=== PATIENT | male | born 1980 | race Caucasian/White ===

== ENCOUNTER 2021-08-10 00:46 | Emergency (ER) | payer OTHER ==
[~2021-08-10] VITALS: Ht 182.9 cm; Wt 114.0 kg
[2021-08-10] MEDS ORDERED: ULTRAM50 MG PO (01:02)
[2021-08-10] MEDS ORDERED: NEURONTIN300 MG PO (01:03)
[2021-08-10] MEDS ORDERED: VISTARIL50 MG PO (01:03)
[2021-08-10] MEDS ORDERED: PENICILLIN V P500 MG PO (01:59)
== END 2021-08-10 02:09 | disposition home or self-care (01) ==
LOC: ED 00:46
DX: K02.9 Dental caries, unspecified (principal); G43.909 Migraine, unspecified, not intractable, without status migrainosus; F43.10 Post-traumatic stress disorder, unspecified; Z79.899 Other long term (current) drug therapy; Z79.891 Long term (current) use of opiate analgesic
CPT/HCPCS: 70450; 99283-25

== ENCOUNTER 2021-11-10 17:17 | Emergency (ER) | payer OTHER ==
[~2021-11-10] VITALS: Ht 182.9 cm; Wt 113.8 kg
[~2021-11-10 17:17] MED LIST: NEURONTIN300 MG PO; PENICILLIN V P500 MG PO; ULTRAM50 MG PO; VISTARIL50 MG PO
[2021-11-10] MEDS ORDERED: TRAZODONE HCL50 MG NG (17:42)
[2021-11-10] MEDS ORDERED: PRAZOSIN HCL1 GM MC (17:42)
[2021-11-10] MEDS ORDERED: PROTONIX40 MG PO (20:33)
[2021-11-10] MEDS ORDERED: ONDANSETRON ODT8 MG PO (20:33)
[2021-11-10] MEDS ORDERED: HYDROCODON-ACE1 EA10 PO (20:33)
== END 2021-11-10 21:15 | disposition home or self-care (01) ==
LOC: ED 17:17
DX: K80.20 Calculus of gallbladder without cholecystitis without obstruction (principal); G43.909 Migraine, unspecified, not intractable, without status migrainosus; Z79.899 Other long term (current) drug therapy; Z20.822 Contact with and (suspected) exposure to COVID-19
CPT/HCPCS: 36415; 74177; 76705; 80053; 83690; 85025; 96375; 96376; 99284-25; A9270; C9803; J1170; J2405; Q9967; U0003

== ENCOUNTER 2022-01-26 10:27 | Inpatient (IN) | payer OTHER ==
[~2022-01-26] VITALS: Ht 182.9 cm; Wt 113.0 kg
[~2022-01-26 10:27] MED LIST changes: +HYDROCODON-ACE1 EA10 PO; +MINIPRESS1 MG PO; +ONDANSETRON ODT8 MG PO; +PROTONIX40 MG PO; +TRAZODONE HCL50 MG PO
--- NOTE | 2022-01-26 15:25 | NUR ---
Patient admitted from the ED, here with a SBO/ileus/cholelithasis. Reports pain of a 4, which he says is getting there. Updated him and his on plan of care. Advised patient that he is NPO, will have fluids and need and NGT, he says he will try but doubts he will be able to do the NGT. Orders to be reviewed, then will attempt NGT.
--- NOTE | 2022-01-26 17:00 | NUR ---
NGT attempted by Jesus ROLON, and the assist of myself Tabatha ROLON. NGT was almost down, when the patient was adament to get it out and he was vomiting during this time. Emesis of approximately 475-500 ml of clear to light yellow liquid.
--- NOTE | 2022-01-26 17:26 | NUR ---
MD CALLED AND NOTIFIED PT. UNABLE TO TOLERATE NG TUBE AND REFUSES.
--- NOTE | 2022-01-26 18:42 | NUR ---
patient snoring laying flat in bed at this time, after 1 mg of IV Diluadid was given. He continues to ask for ice when he wakes, he continues to be updated on his NPO status d/t his ileus/SBO. He has voided 375 in the urinal, urine is yashira in color.
--- NOTE | 2022-01-26 20:21 | NUR ---
pt sleeping soundly. has left.
--- NOTE | 2022-01-26 22:20 | NUR ---
IN TO GET VITALS, PT IS DUE TO VOID, RN AWARE, NO FURTHER NEEDS AT THIS TIME, PT REMAINS NPO STATUS
--- NOTE | 2022-01-27 00:02 | NUR ---
PT HAS BEEN MOSTLY SLEEPING SINCE START OF SHIFT. STATES HE DOES KNOW HOW TO USE CALL LIGHT. HAS C/O DRY MOUTH. MOISTENED SWAB GIVEN. AWARE OF NPO STATUS. STATES PAIN IS "CREEPING UP" BUT IS TOLERABLE AND HE DOES NOT NEED ANY MEDS OR INTERVENTIONS.
--- NOTE | 2022-01-27 00:35 | NUR ---
NEW BAG OF IVF MILY. PT STATES HE WOULD LIKE SOME PAIN MED AT THIS TIME. DILAUDID GIVEN. DENIES ANY OTHER NEEDS.
--- NOTE | 2022-01-27 03:10 | NUR ---
MEDICATED FOR NAUSEA. DENIES ANY OTHER NEEDS. IV SITE RETAPED.
--- NOTE | 2022-01-27 07:20 | NUR ---
Report received from night RN - Velia. Pt asleep in bed, RR even and unlabored. Call light in reach.
--- NOTE | 2022-01-27 08:05 | CONS ---
[facility] [address], [place] [address] Signed DATE OF CONSULTATION: 01/26/2022 CHIEF COMPLAINT: Generalized abdominal pain with nausea and vomiting. 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 He had a similar episode of this several months ago apparently, that generated an ultrasound and he knows he has gallstones. He has now had a 1-day history of generalized abdominal pain and nausea and vomiting. He was getting dehydrated, so his brought him to the emergency room. His white count is elevated but so is his hemoglobin, and his BUN and creatinine are up as well. Liver function tests are particularly concerning, although the alkaline phosphatase is up a little bit at 138 and lipase is normal. Repeat ultrasound confirmed the common bile duct was not dilated at 4 mm, there were stones, and there are loops of dilated small bowel in the right upper quadrant, but the gallbladder wall is not thickened. This generated a CT scan of abdomen and pelvis and he has multiple fluid-filled slightly dilated small bowel loops. He also has fluid in the stomach. We are waiting for final read from our radiologist. In the meantime, I have come down to the ER to visit with Joselo and his . PAST MEDICAL HISTORY: -related traumatic brain injury, posttraumatic stress disorder, migraines. PAST SURGICAL HISTORY: Right shoulder, right hip, and L1 through L4 without any metal remaining. SOCIAL HISTORY: He is down to a few cigarettes every few days. He does not drink. He is to Em, at , they have three children. 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 They live in [place], [place]. Dr. Ed Stern is a primary care provider. FAMILY HISTORY: No major medical issues. REVIEW OF SYSTEMS: He said there is no metal remaining in his body. ALLERGIES: None. MEDICATIONS: Gabapentin, prazosin, and trazodone. Electronically Signed By: CHRISTEL QUINTANA MD 01/27/22 0805 PATIENT NAME: JOSELO FISCHER CONSULTATION DATE OF : 84 REPORT #: [id number] PHYSICIAN: CHRISTEL QUINTANA MD PCP: ED STERN MD REPORT IS CONFIDENTIAL AND NOT TO BE RELEASED WITHOUT AUTHORIZATION [facility] [address], [place] [address] Signed PHYSICAL EXAMINATION: VITAL SIGNS: Blood pressure is 147/101, his heart rate is 96, respiratory rate 14, his temperature is 97.7, and he is saturating 99%. He is 5 feet 6 inches, at 250 pounds. GENERAL: Joselo is a 42-year-old gentleman, lying supine in his ER bed with his in the room. He is alert, awake, and interactive. He can tell he is a little uncomfortable overall. LUNGS: Clear to auscultation bilaterally. HEART: Appeared to be slightly increased, but without murmur. ABDOMEN: Moderately protuberant and diffusely tender with dullness to percussion. LABORATORY DATA: White blood count is 21,000, hemoglobin 17, platelets are 740. His BUN is 31, his creatinine is 1.8, glucose 150. Total bilirubin 0.3, AST 25, ALT 56, alkaline phosphatase 138, albumin is 4.5, his lipase 106. RADIOGRAPHIC STUDIES: The ultrasound of the right upper quadrant shows the common bile duct to be about 4 mm, which is unremarkable. He does have some stones. The gallbladder wall is not particularly thickened, but there are some dilated fluid-filled loops of small bowel. CT scan of the abdomen and pelvis also shows multiple fluid-filled slightly dilated small bowel loops and fluid in the stomach. We are still awaiting the final report. ASSESSMENT/PLAN: Joselo is a 42-year-old gentleman, who presents with what more than likely is a viral gastroenteritis. He is certainly dehydrated. I talked about an NG tube, maybe even just for one day to see if that might help. He thought that might be a good addition from all the vomiting. He is going to be admitted and we will give him IV fluids and repeat his labs in the morning, hopefully this will subside. He understands at 20% of people have gallstones and that does not seem to be as issue on this occasion. He and his have expressed understanding and agreed with the above plan. Christel Quintana MD ALB/MODL /[id number] cc: Ed Stern MD Electronically Signed By: CHRISTEL QUINTANA MD 01/27/22 0805 PATIENT NAME: JOSELO FISCHER CONSULTATION DATE OF : 84 REPORT #: [id number] PHYSICIAN: CHRISTEL QUINTANA MD PCP: ED STERN MD REPORT IS CONFIDENTIAL AND NOT TO BE RELEASED WITHOUT AUTHORIZATION [facility] [address] [place], [place] [address] Signed Christel Quintana MD Patient Chart Copies: ED STERN MD, ANDREW L MD ~ Electronically Signed By: CHRISTEL QUINTANA MD 01/27/22 0805 PATIENT NAME: JOSELO FISCHER CONSULTATION DATE OF : 84 REPORT #: [id number] PHYSICIAN: CHRISTEL QUINTANA MD PCP: ED STERN MD REPORT IS CONFIDENTIAL AND NOT TO BE RELEASED WITHOUT AUTHORIZATION
--- NOTE | 2022-01-27 08:11 | NUR ---
RN IN ROOM TO ADMINISTER SCHEDULED MEDICATIONS. ABX INFUSING AT IV SITE WITHOUT DIFFICULTY. PRN PAIN MEDICATION REQUESTED FOR 7/10 ABD PAIN - ADMINISTERED. PT RESITNG AFTER ADMINISTRATION WITH EYES CLOSED, RR EVEN AND UNLABORED. AT BEDSIDE, CALL LIGHT IN REACH.
--- NOTE | 2022-01-27 10:05 | NUR ---
RN IN ROOM TO ADMINISTER ABX AND ASSESS PT. PT ASLEEP UPON ENTERING THE ROOM, WAKES EASILY WITH VOICE. AT BEDSIDE. MD ROUNDING IN ROOM. STATES PT CAN HAVE ICE CHIPS. PROVIDED. PT THEN REPORTS NAUSEA QUICKLY AFTER FIRST SPOONFULS. PRN NAUSEA MEDICAITON ADMINISTERED, ENCOURAGED PT TO TAKE ACTIVITY AND FLUIDS SLOW. ABD DISTENDED MORE THAN BASELINE PER PT BUT SOFT. HYPERACTIVE BOWEL SOUNDS. PT STATES HE IS PASSING GAS, REPORTS BM LAST NIGHT. PT DENIES FURTHER NEEDS, CALL LIGHT IN REACH.
--- NOTE | 2022-01-27 10:15 | NUR ---
IV pump alarming, resolved. Pt resting in bed with eyes closed, breathing even and unlabored. Visitor at bedside. No needs at this time.
--- NOTE | 2022-01-27 12:24 | NUR ---
RN IN ROOM TO PREP PT FOR SHOWER. INDEPENDENT IN ROOM, IN ROOM TO HELP. PT STATES NAUSEA IMPROVED.
--- NOTE | 2022-01-27 13:16 | NUR ---
PT USES CALL LIGHT TO REQUEST PAIN MEDICATION. RATES PAIN 4/10. IV SITE TOLERATING FLUID INFUSIONS WITHOUT DIFFICULTY. PT STATES NAUSEA IS NOT WORSE AFTER CLEAR LIQUID LUNCH TRAY. CALL LIGHT IN REACH.
--- NOTE | 2022-01-27 16:21 | NUR ---
RN ROUNDING ON PT - RESTING IN BED WITH EYES CLOSED, RR EVEN AND UNLABORED. AT BEDSIDE.
--- NOTE | 2022-01-27 16:52 | NUR ---
PT USES CALL LIGHT TO REQUEST PAIN MEDICATION. PT REPORTS PAIN 6/10 IN ABDOMEN. STATES HE IS ALSO NAUSEA - PRN PROVIDED FOR BOTH. DINNER TRAY DELIVERED - ENCOURAGED TO TAKE IT SLOW. AT BEDSIDE, CALL LIGHT IN REACH.
--- NOTE | 2022-01-27 18:43 | NUR ---
PT RESTING IN BED - STATES PAIN AND NAUSEA ARE IMPROVED. CALL LIGHT IN REACH. AT BEDSIDE.
--- NOTE | 2022-01-27 19:18 | NUR ---
REPORT FROM ОЛЬГА GUERRERO. PATIENT LYING IN BED. STATING HE IS IN PAIN, REQUESTING PAIN MEDICATION. DENIES OTHER NEEDS AT THIS TIME.
--- NOTE | 2022-01-27 19:48 | NUR ---
LYING IN BED, RATING PAIN 6/0 AT THIS TIME. PRN ANALGESIC ADMINISTERED. PATIENT DENIES OTHER NEEDS AT THIS TIME. ASSESSMENT COMPLETED. CALL LIGHT IN REACH, BED RAILS UP X2.
--- NOTE | 2022-01-28 02:16 | NUR ---
CALL LIGHT ANSWERED, IV PUMP ALARMING. ISSUE RESOLVED, FLUIDS CONT TO INFUSE DIRECTED. IV SITE WNL. NO FURTHER NEEDS OR CONCERNS. CALL LIGHT IN REACH.
--- NOTE | 2022-01-28 05:25 | NUR ---
SLept most of the night. IV fluids continue infusing. Continues to have periods of nausea and pain. Pain controlled with PRN Dilaudid X3. Zofran given X1.
--- NOTE | 2022-01-28 07:10 | NUR ---
PATIENT SLEEPING AT THIS TIME. RESPIRATION 16.
--- NOTE | 2022-01-28 08:10 | NUR ---
ASSESSMENT COMPLETED. PAIN 4/10 ACCEPTABLE FOR THE PATIENT.
--- NOTE | 2022-01-28 09:53 | NUR ---
MD AT BEDSIDE, PLAN TO DISCHARGE HOME.
--- NOTE | 2022-01-28 11:25 | NUR ---
discharge instruction discussed, packet given to the patient. Discharge VSS, didnt want to eat lunch here.
--- NOTE | 2022-01-28 12:12 | DS ---
[facility] [address] [place], [place] [address] Signed ADMISSION DATE: 01/26/2022 DISCHARGE DATE: 01/28/2022 FINAL DIAGNOSES: 1. Viral gastroenteritis. 2. Nausea and vomiting with dehydration. 3. Acute kidney injury. 4. Incidental cholelithiasis. PROCEDURES: 1. Ultrasound right upper quadrant. 2. CT scan of abdomen and pelvis. HISTORY OF PRESENT ILLNESS: Joselo is a 42-year-old gentleman, who is now remarried but has 3 living children. His middle son is a teenager and has autism and Down syndrome. He goes to school with other mentally disabled children. He is frequently sick throughout the entire year. Joselo said he came earlier this year with similar symptoms that resolved quickly and he was discharged home. On this occasion, he developed upper abdominal pain, distention with nausea, vomiting, and dehydration. He came to emergency room for evaluation. His white count was elevated, but the other laboratory work was not overly concerning. Of course, the ultrasound confirmed his history of cholelithiasis. Otherwise, no real concerns with his gallbladder or liver. He did have some dilated loops of small bowel. Therefore, a CT scan was ordered and he had a fluid-filled stomach and proximal small bowel more concerning for a viral gastroenteritis. I had been asked to admit him as a general surgeon on-call. HOSPITAL COURSE: I met with Joselo and his in the ER. We tried to place an NG to decompress the stomach, but he did not tolerate that. We admitted him and hydrated him and by the next morning, he looked and felt much better. His white count had already dropped from 21 down to 15. We let him have some clear liquid diet and by the next day his white count is down to normal. His abdomen is completely soft, flat, benign and nontender. He has had a good bowel movement and flatus. He is hungry and would like to eat more. He is hoping to go home. We reviewed the incidental findings of cholelithiasis. He is well aware that 20% of people here in [place] have gallstones. Only 20% of that group will develop symptoms and need their gallbladder out. No reason to pursue that currently from what I can tell. His liver function tests today were normal. DISCHARGE PLANS AND MEDICATIONS: Joselo will be discharged to home without any new prescriptions. He is set to establish Electronically Signed By: CHRISTEL QUINTANA MD 01/28/22 1212 PATIENT NAME: JOSELO FISCHER DISCHARGE SUMMARY DATE OF : 84 REPORT #: [id number] PHYSICIAN: CHRISTEL QUINTANA MD PCP: ED GENTILE MD REPORT IS CONFIDENTIAL AND NOT TO BE RELEASED WITHOUT AUTHORIZATION [facility] [address] [place], [place] [address] Signed with his primary care provider here in the weeks ahead. He can shower and bathe as usual. He will advance his diet as tolerated. He can return to work in a day or two when he is feeling better. There are no restrictions on his physical activities. 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 He is welcome to follow up in my office as needed. I have reviewed this with Joselo and his . They have expressed understanding and agreed with the above plan. Christel Quintana MD ALB/MODL /[id number] cc: MD Ed Tellez MD Copies: CHRISTEL QUINTANA MD, RUSSELL BARR MD ~ Electronically Signed By: CHRISTEL QUINTANA MD 01/28/22 1212 PATIENT NAME: JOSELO FISCHER DISCHARGE SUMMARY DATE OF : 84 REPORT #: [id number] PHYSICIAN: CHRISTEL QUINTANA MD PCP: ED GENTILE MD REPORT IS CONFIDENTIAL AND NOT TO BE RELEASED WITHOUT AUTHORIZATION
== END 2022-01-28 11:14 | disposition home or self-care (01) | DRG 392 ==
LOC: ED 10:27 → MS 14:17
PROVIDERS: ADMIT Colon & Rectal Surgery; ATTEND Colon & Rectal Surgery
DX: A08.4 Viral intestinal infection, unspecified (principal); N17.9 Acute kidney failure, unspecified; Z20.822 Contact with and (suspected) exposure to COVID-19; E86.0 Dehydration; K80.20 Calculus of gallbladder without cholecystitis without obstruction; D72.829 Elevated white blood cell count, unspecified; F43.10 Post-traumatic stress disorder, unspecified; G43.909 Migraine, unspecified, not intractable, without status migrainosus; Z87.820 Personal history of traumatic brain injury; Z98.890 Other specified postprocedural states; Z79.899 Other long term (current) drug therapy
CPT/HCPCS: 36415; 74177; 76705; 80048; 80053; 83690; 83735; 84100; 85025; 87502; 99285-25; C9113; C9803; J0696; J1170; J1650; J1790; J2405; J7030; J7121; Q9967; U0003

== ENCOUNTER 2024-11-30 07:22 | Inpatient (IN) | payer OTHER ==
[~2024-11-30] VITALS: Ht 182.9 cm; Wt 120.0 kg
[2024-11-30] VITALS (8 sets, daily range): BP systolic 128–151; BP diastolic 68–92
[~2024-11-30 07:22] MED LIST changes: +AZITHROMYCIN250 MG PO; +OXYCODONE HCL10 MG PO
--- OUTSIDE RECORDS SUMMARY | 2024-11-30 07:25 | XMS ---
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 09/16/2023 15:12 - Patient eloped with IV in place. - Patient eloped before treatment completed. - Patient with suicidal and/or homicidal ideations eloped. Details: Patient LWBS. CRITERIA MET - Group Notification CARE PROVIDERS There are no care providers on record at this time. Emile has no Care Guidelines for this patient. E.D. VISIT COUNT (12 MO.) [address] TOTAL 3 NOTE: Visits indicate total known visits. ED/UCC VISIT TRACKING (12 MO.) 11/30/2024 07:23 [facility] TYPE: Emergency COMPLAINT: - ABDOMINAL PAIN 07/06/2024 09:46 [facility] TYPE: Emergency COMPLAINT: - SOA,ABD PX 07/03/2024 08:36 [facility] TYPE: Emergency COMPLAINT: - ABD PX INPATIENT VISIT TRACKING (12 MO.) 07/06/2024 15:51 [facility] TYPE: Inpatient COMPLAINT: - PARTIAL SBO, ABDOMINAL PAIN DIAGNOSES: - Body mass index [BMI] 36.0-36.9, adult - Body mass index [BMI] 36.0-36.9, adult - Crohn's disease of small intestine without complications - Crohn's disease of small intestine without complications - Elevated blood-pressure reading, without diagnosis of hypertension - Elevated blood-pressure reading, without diagnosis of hypertension - Other elevated white blood cell count - Other elevated white blood cell count - Partial intestinal obstruction, unspecified as to cause - Partial intestinal obstruction, unspecified as to cause - Thrombocytosis, unspecified - Thrombocytosis, unspecified - Obesity, class 2 - Obesity, class 2 07/03/2024 10:46 [facility] TYPE: Inpatient COMPLAINT: - ABD PX DIAGNOSES: - Acute kidney failure, unspecified - Acute kidney failure, unspecified - Body mass index [BMI] 36.0-36.9, adult - Body mass index [BMI] 36.0-36.9, adult - Crohn's disease of small intestine without complications - Crohn's disease of small intestine without complications - Hypomagnesemia - Hypomagnesemia - Other elevated white blood cell count - Other elevated white blood cell count - Partial intestinal obstruction, unspecified as to cause - Partial intestinal obstruction, unspecified as to cause - Thrombocytosis, unspecified - Thrombocytosis, unspecified - Unspecified intestinal obstruction, unspecified as to partial versus complete obstruction - Unspecified intestinal obstruction, unspecified as to partial versus complete obstruction - Obesity, class 2 - Obesity, class 2 [email or web address]
[2024-11-30] MEDS ORDERED: HYDROmorphone HCL 1 MG/ML SYR IV PRN ×3 (07:45→15:00)
[2024-11-30] MEDS ORDERED: ondansetron HCL 4 MG/2 ML VIAL IV ONE (07:45)
[2024-11-30] MEDS ORDERED: SODIUM CHLORIDE 0.9% 1,000 ML IV ONE (07:45)
[2024-11-30 08:24] LABS: BASOPHILS 0.4 % (0-2); EOSINOPHILS 0.4 % (0-6); HEMATOCRIT 48.4 % (35.0-50.0); HEMOGLOBIN 16.7 g/dL (12.0-18.0); LYMPHOCYTES 15.9 % (24-44); MCH 30.3 (27-36); MCHC 34.4 g/dl (30-36); MCV 87.8 fl (81-99); MONOCYTES 10.3 % (0-12); PLATELET COUNT 444 K/uL (140-440); RBC 5.51 M/ul (4.3-5.7)
[2024-11-30 08:45] LABS: ALBUMIN 3.9 g/dL (3.4-5.0); ALBUMIN/GLOBULIN RATIO 0.93 (1.1-2.4); ANION GAP 16.1 (7-21); BILIRUBIN, TOTAL 0.6 mg/dL (0.2-1.0); BUN/CREATININE RATIO 13.2 (6.0-28.6); CALCIUM 9.5 mg/dL (8.5-10.1); CREATININE, SERUM 1.06 mg/dL (0.70-1.30); POTASSIUM 4.1 mmol/L (3.5-5.1); PROTEIN, TOTAL 8.1 g/dL (6.4-8.2)
[2024-11-30] MEDS ORDERED: SODIUM CHLORIDE 0.9% 1,000 ML IV SCH (10:30)
[2024-11-30] MEDS ORDERED: DEXTROSE 5% - LACTATED RINGERS 1,000 ML IV SCH (10:45)
[2024-11-30] MEDS ORDERED: ondansetron HCL 4 MG/2 ML VIAL IV PRN ×2 (10:45→15:00)
--- NOTE | 2024-11-30 11:35 | NUR ---
PATIENT ADMITTED TO MED SURG. RAN HOME FOR A FEW MINUTES. PATIENT HAS DRLR@125 TO LEFT A/C. PATIENT RATES ABD PAIN 5/10, ENDORSES NAUSEA AND EMESIS BAGS ARE CLOSE AT HAND. PATIENT ORIENTED TO ROOM AND CALL LIGHTS. NO OTHER NEEDS AT THIS TIME.
--- NOTE | 2024-11-30 12:09 | NUR ---
PT RESTING IN BED WITH EYES CLOSED. CALL LIGHT IN REACH.
--- NOTE | 2024-11-30 12:39 | NUR ---
PATIENT GIVEN 0.5MG OF IV DILAUDID FOR 7/10 ABD PAIN.
--- NOTE | 2024-11-30 12:41 | NUR ---
PATIENT IN BED AT THIS TIME. MODEL MAKING SUPERVISOR CHARTED HOURLY ROUNDS. CALL LIGHT WITHIN REACH, NO NEEDS AT THIS TIME.
--- NOTE | 2024-11-30 13:52 | NUR ---
PATIENT IN BED AT THIS TIME. SUPERVISOR WHITE SUGAR CHARTED VITALS AND I&O'S. CALL LIGHT WITHIN REACH, NO FURTHER NEEDS AT THIS TIME.
--- NOTE | 2024-11-30 14:07 | NUR ---
PATIENT REPORTS HIS PAIN IS 3/10. SPOUSE IS IN ROOM WITH PATIENT. NO OTHER NEEDS AT THIS TIME.
[2024-11-30] MEDS ORDERED: LACTATED RINGER'S 1,000 ML IV SCH (15:00)
[2024-11-30] MEDS ORDERED: KETOROLAC TROMETHAMINE 30 MG/ML VIAL IV PRN (15:00)
--- NOTE | 2024-11-30 15:48 | NUR ---
PATIENT CALLED TO USE THE BATHROOM, ASSISTED WITH IV POLE TO THE RESTROOM. PATIENT STEADY ON FEET AND HAD NO COMPLAINTS OF WEAKNESS. HAD NO OTHER REQUESTS AT THIS TIME.
--- NOTE | 2024-11-30 15:54 | NUR ---
PATIENT GIVEN 0.5MG OF IV DILAUDID AND 30MG OF IV TORADOL. PATIENT UP TO BATHROOM TO VOID. IVF CHANGED FROM D5LR@125 TO LR@125. PATIENT UP TO BATHROOM TO VOID TO URINAL, SBA/AD GELY.
--- NOTE | 2024-11-30 16:30 | NUR ---
Spoke with Joselo. He states he lives with his in a house with steps down to the main floor. No steps into the home. Pt is and uses the [facility], his pcp is Dr. Stern here in town. 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 He states this is his 3rd bowel obstruction. He does not use any DME. He denies financial or safety concerns. Pt believes he may need to have surgery, but is unsure. Plans on dc to home with when cleared medically.
--- NOTE | 2024-11-30 17:49 | NUR ---
PATIENT IS RESTING IN BED, RATES ABDOMINAL PAIN 2/10 AND "VERY TOLERABLE." EVENING VITALS COMPLETE.
--- NOTE | 2024-11-30 18:39 | NUR ---
PATIENT GIVEN 0.5MG OF IV DILAUDID FOR 6/10 ABDOMINAL PAIN. NO OTHER NEEDS AT THIS TIME.
--- NOTE | 2024-11-30 19:25 | NUR ---
REPORT RECEIVED FROM DAY SHIFT RN. PATIENT RESTING IN BED ON BACK WITH EYES CLOSED. RESPIRATIONS EVEN AND UNLABORED. CALL LIGHT IN REACH.
[2024-11-30] MEDS ORDERED: FAMOTIDINE 20 MG/ 2 ML VIAL IV SCH (21:00)
--- NOTE | 2024-11-30 21:08 | NUR ---
CALL LIGHT ANSWERED. pt RATES PAIN "A STRONG 7"/10. pt TWITCHING LEGS, FACIAL GRIMACE NOTED. PRN PAIN MEDICATION ADMINISTERED. SCHEDULED PEPCID ADMINISTERED. EDUCATION PROVIDED. pt CONTINUES TO REFUSE NGT. URINE HAT EMPTIED. CALL LIGHT IN REACH. NO ADDITIONAL REQUESTS.
--- NOTE | 2024-11-30 21:40 | NUR ---
PATENT RESTING IN BED. SCHEDULED MEDICATION ADMINISTERED. ASSESSMENT COMPLETE. PATIENT DENIES FURTHER NEEDS AT THIS TIME. CALL LIGHT IN REACH.
[2024-11-30] MEDS ORDERED: HEParin SOD (PORCINE) 5,000 UNIT/ML SDV SUB-Q SCH (22:00)
--- NOTE | 2024-11-30 22:03 | NUR ---
PRN PAIN MEDICATION ADMINISTERED PER PATIENT REQUEST. NO FURTHER NEEDS. CALL LIGHT IN REACH.
--- NOTE | 2024-11-30 23:45 | NUR ---
CALL LIGHT ANSWERED. PATIENT REPORTING 7/10 PAIN AFTER HAVING A SMALL, GREEN, LIQUID BM. PRN PAIN MEDICATION ADMINISTERED. BOWEL TONES CAN BE HEARD WITHOUT AUSCULTATION WITH A STETHOSCOPE. VS AND I&Os OBTAINED AND RECORDED. PATIENT HAS NO FURTHER NEEDS. CALL LIGHT IN REACH.
[2024-12-01] VITALS (8 sets, daily range): BP systolic 115–145; BP diastolic 77–85
--- NOTE | 2024-12-01 01:29 | NUR ---
CALL LIGHT ANSWERED. PATIENT REPORTING 8/10 ABD PAIN. PRN PAIN MEDICATION ADMINISTERED PER PATIENT REQUEST. NO FURTHER NEEDS. CALL LIGHT IN REACH.
--- NOTE | 2024-12-01 02:40 | NUR ---
PATIENT RESTING IN BED WITH EYES CLOSED. RESPIRATIONS EVEN AND UNLABORED. CALL LIGHT IN REACH.
[2024-12-01 05:31] LABS: BASOPHILS 0.4 % (0-2); EOSINOPHILS 0.7 % (0-6); HEMOGLOBIN 14.8 g/dL (12.0-18.0); LYMPHOCYTES 34.5 % (24-44); MCH 30.4 (27-36); MCHC 34.3 g/dl (30-36); MCV 88.5 fl (81-99); NEUTROPHILS 53.4 % (39-80); PLATELET COUNT 379 K/uL (140-440); RBC 4.86 M/ul (4.3-5.7); RDW 13.6 (10.5-15.0)
--- NOTE | 2024-12-01 06:06 | NUR ---
CALL LIGHT ANSWERED. PATIENT REPORTING 5/10 ABD PAIN. PRN PAIN MEDICATION ADMINISTERED. SCHEDULED MEDICATION ADMINISTERED. PATIENT DENIES FURTHER NEEDS. CALL LIGHT IN REACH.
--- NOTE | 2024-12-01 07:32 | NUR ---
MORNING REPORT RECIVED FROM ОЛЬГА ZAMAN. PT LAYING IN BED AWAKE AND ALERT, PT EXPRESSES HE IS EXPIRENCING SOME PAIN, BUT DENIES WANTING PAIN MEDICATION AT THIS TIME. PT HAS CALL LIGHT IN REACH.
--- NOTE | 2024-12-01 08:15 | NUR ---
PT LAYING IN BED PT HAS NO CONCERNS AT THIS TIME PT HAS CALL LIGHT IN REACH.
--- NOTE | 2024-12-01 09:40 | NUR ---
PT CALLED [facility], PT REQUESTED SOMETHING FOR ABD PAIN. ОЛЬГА LAWLER GAVE PT DILAUDID, (SEE EMAR). PT HAS NO OTHER CONCERNS AT THIS TIME. CALL LIGHT IN REACH.
--- NOTE | 2024-12-01 09:45 | NUR ---
PATIENT IN BED AT THIS TIME. RN IN ROOM TO GIVE PAIN MEDS. VITALS DONE AND CHARTED. CALL LIGHT IN REACH. NO FURTHER NEEDS AT THIS TIME.
--- NOTE | 2024-12-01 09:46 | NUR ---
UR CLINICAL REVIEW: PARESH-LINDA YODER REVIEW MEETS OBS FOR SBO. WILL MEET INPT IF NEEDED, WILL DISCUSS WITH MD. CONRADO GLEZ OBS 11/30/24 @ 0724 ORDER MATCHES REG CLINICALS FAXED TO [facility] FOR REVIEW DISCHARGE TO HOME WHEN STABLE 12/02/24
--- NOTE | 2024-12-01 10:37 | NUR ---
PT CURRENTLY LAYING IN BED WITH EYES CLOSED CHEST RISE EQUAL BILAT. PT HAS CALL LIGHT IN REACH.
--- NOTE | 2024-12-01 11:00 | NUR ---
Spoke with Joselo. He states he is, "miserable". He also states he has not eaten in 5 days. He denies needs for pain meds. I covered him with a warm blanket.
--- NOTE | 2024-12-01 11:29 | NUR ---
PT LAYING IN BED, PT PAIN HAS INCREASED TO 10/10. PT WAS GIVEN PRN TORADOL (SEE EMAR). MD PELAEZ WAS IN TO SEE PT AND PUT IN AN ORDER FOR A CT OF THE ABD. PT REPOSNDED TO THE TORADOL AND IS MORE COMFORTABLE AND HAS NO CONCERNS AT THE MOMENT CALL LIGHT IN REACH.
--- NOTE | 2024-12-01 12:18 | NUR ---
PT FLUIDS DISCONNECTED SO PT COULD GO WITH IMAGING TO RECIEVE A CT SCAN. PT AWARE PT LEFT FOR IMAGING.
--- NOTE | 2024-12-01 12:48 | NUR ---
PATIENT GIVEN 0.5MG OF IV DILAUDID FOR 6/10 ABD PAIN.
--- NOTE | 2024-12-01 13:36 | NUR ---
PT LAYING IN BED, PT STATES " HIS PAIN IS CURRENTLY UNDER CONTROL AT THIS TIME". PT HAS NO CURRENT CONCERNS AT THIS TIME. PT HAS CALL LIGHT IN REACH.
--- NOTE | 2024-12-01 14:08 | NUR ---
PATIENT IN BED RESTING AT THIS TIME. VITALS AND I&O'S DONE AND CHARTED. RN IN ROOM. CALL LIGHT IN REACH. NO FURTHER NEEDS AT THIS TIME.
[2024-12-01] MEDS ORDERED: MEROPENEM 500 MG VIAL ONE (15:00)
[2024-12-01] MEDS ORDERED: MEROPENEM 500 MG in SODIUM CHLORIDE 0.9% 100 ML IV SCH (15:00)
--- NOTE | 2024-12-01 15:38 | NUR ---
PT LAYING IN BED WITH EYES CLOSED AND CHEST RISE EQUAL BILAT. PT HAS NO TOHER CONCERNS AT THIS TIME CALL LIGHT IN REACH
[2024-12-01] MEDS ORDERED: OZEMPIC1 MG/0.71 SUB-Q (16:21)
--- NOTE | 2024-12-01 17:24 | HP ---
[facility] [address], [place] [address] Signed ADMISSION DATE: 11/30/2024 REASON FOR ADMISSION: Recurrent bowel obstruction. HISTORY OF PRESENT ILLNESS: This 44-year-old man is accompanied by his . He presented to the emergency room at approximately 7:30, having had three days of nausea and vomiting. He has had admission to the hospital for bowel obstruction at least twice and possibly three times; once in [place] and another in [place]. He took his 1st shot of Semaglutide Saturday night and the symptoms started thereafter. At his presentation to the emergency room, he was thought by Dr. Bailey to possibly have symptoms related to Semaglutide, which of course can include gastric dysmotility, bloating and so forth. He did undergo a CT scan of the abdomen which showed small bowel obstruction with a transition point in the posterior central abdomen. There is no evidence of volvulus per se. He is admitted for further evaluation and care. The patient notably says "I cannot do a nasogastric tube." By this, he means people have had difficulty in passing the nasogastric tube in the past. He does admit that one was passed in [place], [place] that was short lived in its duration due to him self extracting the nasogastric tube. His biggest issue I believe is anxiety related to having apparent difficulty in placement of an NGT in the past. PAST MEDICAL HISTORY: Notable for history of traumatic brain injury and PTSD. He has had migraine issues. He did undergo cholecystectomy by Dr. Randell Meza, his only actual operation which was performed in March of 2022. Review of that op report confirms that the procedure was prolonged, complicated, and difficult lasting an hour and 30 minutes. He had severe acute cholecystitis with inflammation of the triangle of [place]. The cholangiogram was not performed due to difficulty of dissection. Emergency room evaluation included a CBC, which showed a white count elevated slightly at 11.5, hematocrit normal at 48.4, platelets 444,000. Chem profile was essentially normal. Glucose is 111. Liver enzymes slightly abnormal. Alkaline phosphatase is 132; lipase was 103, normal is 77. PHYSICAL EXAMINATION: GENERAL: A large white man who looks to be in no severe distress and not in systemic toxicity. VITAL SIGNS: Temperature is 98.1, pulse 74, blood pressure 147/92, O2 saturation 96% on room air. NECK: Trachea is midline. CHEST: Clear. Electronically Signed By: PEPPER PELAEZ MD 12/01/24 1724 PATIENT NAME: MEGAN FISCHER HISTORY AND PHYSICAL DATE OF : 84 REPORT #: [id number] PHYSICIAN: PEPPER PELAEZ MD PCP: ED GENTILE MD REPORT IS CONFIDENTIAL AND NOT TO BE RELEASED WITHOUT AUTHORIZATION [facility] [address], [place] [address] Signed HEART: Regular without murmur. ABDOMEN: Obese, but generally soft. There are laparoscopic scars from the past. He does not have focal tenderness particularly though there is mild tenderness in the epigastric area. EXTREMITIES: Showed no clubbing, cyanosis, or edema. LAB STUDIES: Are as previously noted. ASSESSMENT: The patient clearly has a small-bowel obstruction based on my review of the CT scan. I am an advocate for NG tube decompression in most situations, does provide significant pain relief to the patient who has significant obstruction. I discussed this in detail though he initially refuses it. I have asked him to think on it a bit as I think I can get it in without problem and help him to have it remain in place as his GI tract decompresses. Given his chronic recurrent obstructive processes (small-bowel obstruction), it may ultimately be necessary to perform operation to assess and identify the obstructive portion of the bowel and provide for surgical remedy. He is well aware that surgery can sometimes be get additional adhesions and understands that well. PLAN: Keep n.p.o. and keep IV fluid administration. He will ponder the idea of nasogastric tube placement that I would be happy to do. So far he is adament against my recommendation for the ngt. He has had no vomiting since admission so we can observe and see how it plays out. Persistent vomiting may change his mind as regards a tube. We will get abdominal KUB in the morning to assess his progress. Possibility of a small-bowel follow-through to better assess full versus incomplete obstruction might be appropriate also. If he changes his mind to allow for ngt, I will happily do it myself. MD DAVE John/MODL /[id number] Electronically Signed By: PEPPER PELAEZ MD 12/01/24 1724 PATIENT NAME: MEGAN FISCHER HISTORY AND PHYSICAL DATE OF : 84 REPORT #: [id number] PHYSICIAN: PEPPER PELAEZ MD PCP: ED GENTILE MD REPORT IS CONFIDENTIAL AND NOT TO BE RELEASED WITHOUT AUTHORIZATION [facility] [address] [place], [place] [address] Signed cc: Dr. Bailey Copies: ~ Electronically Signed By: PEPPER PELAEZ MD 12/01/24 1724 PATIENT NAME: MEGAN FISCHER HISTORY AND PHYSICAL DATE OF : 84 REPORT #: [id number] PHYSICIAN: PEPPER PELAEZ MD PCP: ED GENTILE MD REPORT IS CONFIDENTIAL AND NOT TO BE RELEASED WITHOUT AUTHORIZATION
--- NOTE | 2024-12-01 17:38 | NUR ---
PT SITTING UP IN BED PT TOLERATED CLEAR DIET DINNER WELL. PT HAS NO CONCERNS AT THIS TIME AND STATES HIS PAIN HAS LESSENED FROM THIS MORNING. PT HAS CALL LIGHT IN REACH.
--- NOTE | 2024-12-01 18:33 | NUR ---
MD PELAEZ NOTIFIED VIA PHONE THAT PT STATED " TAKE MY IV OUT I WANT TO GO HOME". BENIGNO WAS MOTIFIED AND STATED HE WOULD LIKE THE PT TO STAY AND THAT HE DOES NOT RECOMEND THAT THE PT LEAVE. PT WOULD BE LEAVING AMA. CHARGE NURSE ОЛЬГА LOZANO IS AWARE OF SITUATION. PT IS WAITING IN ROOM CALMLY.
--- NOTE | 2024-12-01 19:00 | NUR ---
MD PELAEZ CONTACTED VIA PHONE AND NOTIFIED THAT PT LEFT AMA. PT SIGNED FORM CHARGE NURSE AWARE.
== END 2024-12-01 18:57 | disposition left against medical advice (07) | DRG 390 ==
LOC: ED 07:22 → MS 07:24
PROVIDERS: Emergency Medicine; ADMIT Surgery; ATTEND Surgery
DX: K56.609 Unspecified intestinal obstruction, unspecified as to partial versus complete obstruction (principal); F43.10 Post-traumatic stress disorder, unspecified; G43.909 Migraine, unspecified, not intractable, without status migrainosus; Z96.641 Presence of right artificial hip joint; Z96.611 Presence of right artificial shoulder joint; Z98.1 Arthrodesis status; Z90.49 Acquired absence of other specified parts of digestive tract; Z87.820 Personal history of traumatic brain injury; Z87.19 Personal history of other diseases of the digestive system; Z53.29 Procedure and treatment not carried out because of patient's decision for other reasons
CPT/HCPCS: 36415; 74018; 74176; 74177; 80053; 83690; 85025; 96372; 96375; 96376; G0378; J1171; J1644; J1885; J2185; J2405; J7030; J7121; Q9967

== ENCOUNTER 2025-03-16 06:48 | Observation (INO) | payer OTHER ==
[~2025-03-16] VITALS: Ht 182.9 cm; Wt 114.0 kg
[~2025-03-16 06:48] MED LIST changes: +OZEMPIC1 MG/0.71 SUB-Q
--- OUTSIDE RECORDS SUMMARY | 2025-03-16 06:55 | XMS ---
PreManage Notification: MEGAN FISCHER Security Transportation Director Events 1 event(s) in the past 18 months Most recent security events: Elopement at [facility] 09/16/2023 15:12 Details: Patient LWBS. CRITERIA MET - Group Notification CARE PROVIDERS There are no care providers on record at this time. Emile has no Care Guidelines for this patient. Sho VISIT COUNT (12 MO.) [address] TOTAL 4 NOTE: Visits indicate total known visits. ED/C VISIT TRACKING (12 MO.) 03/16/2025 06:49 [facility] TYPE: Emergency COMPLAINT: - ABDOMINAL PAIN 11/30/2024 07:23 [facility] TYPE: Emergency COMPLAINT: - [facility] COMPLAINT: - KIARA HUNT PX [facility] 08[facility] COMPLAINT: - ABD PX INPATIENT VISIT TRACKING (12 MO.) 12/01/2024 14:13 ЕЛЕН[facility] TYPE: Medical Surgical COMPLAINT: - SBO DIAGNOSES: - Acquired absence of other specified parts of digestive tract - Acquired absence of other specified parts of digestive tract - Arthrodesis status - Arthrodesis status - Migraine, unspecified, not intractable, without status migrainosus - Migraine, unspecified, not intractable, without status migrainosus - Personal history of other diseases of the digestive system - Personal history of other diseases of the digestive system - Personal history of traumatic brain injury - Personal history of traumatic brain injury - Post-traumatic stress disorder, unspecified - Post-traumatic stress disorder, unspecified - Presence of right artificial hip joint - Presence of right artificial hip joint - Presence of right artificial shoulder joint - Presence of right artificial shoulder joint - Procedure and treatment not carried out because of patient's decision for other reasons - Procedure and treatment not carried out because of patient's decision for other reasons - Right upper quadrant pain - Unspecified intestinal obstruction, unspecified as to partial versus complete obstruction - Unspecified intestinal obstruction, unspecified as to partial versus complete obstruction 07/06/2024 15:51 [facility] TYPE: Inpatient COMPLAINT: - PARTIAL SBO, [...] 2 - Obesity, class 2 07/03/2024 10:46 [facility] TYPE: Inpatient COMPLAINT: - ABD PX [...] Obesity, class 2 - Obesity, class 2 [email or web address]
[2025-03-16] MEDS ORDERED: SILDENAFIL20 MG PO (06:58)
[2025-03-16 07:09] LABS: BASOPHILS 0.4 % (0.2-1.2); EOSINOPHILS 0.7 % (0.8-7.0); HEMATOCRIT 46.4 % (40.1-51.0); HEMOGLOBIN 15.8 g/dL (13.7-17.5); LYMPHOCYTES 28.6 % (21.8-53.1); MCH 28.8 PG (25.7-32.2); MCHC 34.1 g/dL (32.3-36.5); MCV 84.7 fL (79.0-92.2); MONOCYTES 8.1 % (5.3-12.2); PLATELET COUNT 448 K/uL (163-337); RBC 5.48 M/uL (4.63-6.08)
[2025-03-16] MEDS ORDERED: ondansetron HCL 4 MG/2 ML VIAL IV ONE (07:15)
[2025-03-16] MEDS ORDERED: HYDROmorphone HCL 1 MG/ML SYR IV ONE (07:15)
[2025-03-16] MEDS ORDERED: SODIUM CHLORIDE 0.9% 1,000 ML IV PRN (07:15)
[2025-03-16 07:24] LABS: ALBUMIN 3.8 g/dL (3.4-5.0); ALBUMIN/GLOBULIN RATIO 1.03 (1.1-2.4); ANION GAP 12.9 (7-21); BILIRUBIN, TOTAL 0.6 mg/dL (0.2-1.0); BUN/CREATININE RATIO 14.28 (6.0-28.6); CALCIUM 9.3 mg/dL (8.5-10.1); CREATININE, SERUM 1.19 mg/dL (0.70-1.30); MAGNESIUM 1.8 mg/dL (1.8-2.4); POTASSIUM 3.9 mmol/L (3.5-5.1); PROTEIN, TOTAL 7.5 g/dL (6.4-8.2)
[2025-03-16 08:36] LABS: BILIRUBIN, URINE NEGATIVE (negative); BLOOD/HGB, URINE NEGATIVE (Negative); KETONE, URINE NEGATIVE (Negative); LEUK ESTERASE, URINE NEGATIVE (negative); NITRITE, URINE NEGATIVE (negative); PH, URINE 5.5 (5-7)
[2025-03-16 10:34] VITALS: BP 146/75
--- NOTE | 2025-03-16 10:57 | NUR ---
VISITED DURING SPIRITUAL CARE ROUNDS. PT IN SIGNIFICANT PAIN, STRUGGLING TO REMAIN STILL, GRIMACING; ОЛЬГА OLMOS IN ROOM. SUPERVISOR DUMPING PROVIDED SUPPORTIVE PRESENCE, PRAYER, FACILITATED INTERACTION WITH THERAPY ANIMAL. PT EXPRESSED COMFORT IN PRESENCE OF ANIMAL, GRATITUDE FOR VISIT.
--- NOTE | 2025-03-16 11:06 | NUR ---
PT TO [facility] VIA STRETCHER. SELF TRANSFERS TO THE BED IS PRESENT. PT ORIENTED TO ROOM, BED CONTROLS, AND ROUTINE.
[2025-03-16] MEDS ORDERED: LACTATED RINGER'S 1,000 ML IV SCH (11:15)
[2025-03-16] MEDS ORDERED: HYDROmorphone HCL 1 MG/ML SYR IV PRN (11:15)
--- NOTE | 2025-03-16 11:17 | NUR ---
PT C/O 03/09 ABDOMINAL PAIN. CALLED SURG FOR ORDERS. 1MG DILAUDID ADMINISTERED PT STATES "OH THAT'S QUITE EFFECTIVE" MED IS BEING GIVEN
[2025-03-16] MEDS ORDERED: HEParin SOD (PORCINE) 5,000 UNIT/ML SDV SUB-Q SCH (11:23)
[2025-03-16] MEDS ORDERED: CIPROFLOXACIN/DEXTROSE 400 MG/200 ML PIGGYBACK IV SCH (11:24)
[2025-03-16] MEDS ORDERED: ACETAMINOPHEN 500 MG TAB PO PRN (11:30)
[2025-03-16] MEDS ORDERED: METOCLOPRAMIDE HCL 10 MG/2 ML SDV IV PRN (11:30)
--- NOTE | 2025-03-16 11:50 | NUR ---
PT RESTING SOUNDLY AWAKENS TO VOICE, AGREES HE IS COMFORTABLE AND WITHOUT NEED. PT REMINDED TO CALL STAFF BEFORE GETTING UP, ESPECIALLY AFTER PAIN MEDS
[2025-03-16] MEDS ORDERED: DIATRIZOATE MEGLU/DIATRIZO SOD 15 ML BTL PO SCH (12:00)
[2025-03-16] MEDS ORDERED: PHARMACY RENAL DOSE ADJUSTMENT 1 DOSE MISC PO SCH (12:00)
--- NOTE | 2025-03-16 13:15 | NUR ---
PT C/O ABD/BACK PAIN 03/09. WARM PACK AND TYLENOL PROVIDED PT STATES WARM PACK IS HELPING. RETURNS TO ROOM
[2025-03-16 13:32] VITALS: BP 119/73
--- NOTE | 2025-03-16 13:59 | NUR ---
PT RESTING EYES CLOSED ALERT TO THIS PRODUCTION SUPV, INDICATES HE IS PAINFUL AGAIN. PT TOLD HE WILL HAVE MORE PAIN MEDS AVAILABLE SOON ABX TO BE ADMINISTERED NOW. PT SNORING SOFTLY BEFORE THIS PRODUCTION SUPV LEAVES THE ROOM
[2025-03-16] MEDS ORDERED: metroNIDAZOLE/SODIUM CHLORIDE 500 MG/100 ML PIGGYBACK IV SCH (14:00)
--- NOTE | 2025-03-16 14:10 | NUR ---
Spoke with pts , Em, as he has received pain medication. They live in a 2 story home with steps into the laundry area. Pt does not have issues with walking or getting around in his home. 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 He is 100% service connected. He is currently establishing care with the [facility] in March. He does not have a Dr. in town at this time. Pt cont. to return to the hospital as he has bouts of abd pain. denies needs. Plans for pt to go home on dc. NO financial or safety concerns. No DME.
[2025-03-16 14:19] VITALS: BP 119/73
--- NOTE | 2025-03-16 15:02 | NUR ---
PT RESTING EYES CLOSED THIS REGULATOR ASSEMBLER ENTERS THE ROOM, AWAKENS HIM. PT AGREES HE IS STILL PAINFUL MEDICATED PER MAR. PT RETURNS TO DOZING, SNORING SOFTLY. CALL LIGHT AT BEDSIDE CONTINUES NPO
--- NOTE | 2025-03-16 16:55 | NUR ---
PT RESTING EYES CLOSED PRESENT IN THE ROOM
[2025-03-16] MEDS ORDERED: KETOROLAC TROMETHAMINE 15 MG/ML VIAL IV PRN (17:15)
[2025-03-16] MEDS ORDERED: CHLORHEXIDINE473 ML MM (17:23)
[2025-03-16] MEDS ORDERED: DENTA 5000 PLUS51 GM MM (17:24)
--- NOTE | 2025-03-16 17:24 | NUR ---
DR MORGAN IN TO SEE PT AND DISCUSS SURGERY. CONSENT SIGNED. DR CONTACTED SOON AFTER NOTIFIED DILAUDID Q4 WAS LEAVING PT PAINFUL INBETWEEN. ORDERS FOR TORDOL Q6 ADDED. PT DENIES QUESTIONS R/T UPCOMING SURGERY
--- NOTE | 2025-03-16 17:24 | NUR ---
MED REC COMPLETE
[2025-03-16 17:31] VITALS: BP 136/83
--- NOTE | 2025-03-16 18:05 | NUR ---
PT RESTING SOUNDLY APPEARS RELAXED
--- NOTE | 2025-03-16 18:55 | NUR ---
PT HAS NEEDED DILAUDID Q4 ENTIRE SHIFT. PULLED DILAUDID IN ANTICIPATION OF NEED PT IS SOUND TO SLEEP. WAITED FOR A TIME PT CONTINUES TO SLEEP SOUNDLY DESPITE WIFES RETURN SATS 96% ON ROOM AIR BREATHING EVEN AND UNLABORED. WASTED DILAUDID.
--- NOTE | 2025-03-16 19:05 | NUR ---
REPORT RECEIVED FROM JOHNNY ROLON. pt RESTING IN THE BED. BOARD UPDATED. pt DENIES ANY OTHER NEEDS AT THIS TIME. CALL LIGHT WITHIN REACH.
--- NOTE | 2025-03-16 20:15 | NUR ---
TO NURSES STATION, NOTIFIES THIS RN pt REPORTING PAIN. IN ROOM, pt REPORTS 6/10 ABDOMINAL PAIN, SHIFTING IN BED. PRN PAIN MEDICATION ADMINISTERED. IVF INFUSING WNL. CALL LIGHT IN REACH.
[2025-03-16 20:35] VITALS: BP 133/76
--- NOTE | 2025-03-16 20:35 | NUR ---
ASSESSMENT AND VITAL SIGNS. IV ASSESSED, WNL. SCHEDULED MEDS ADMINISTERED. BOWEL TONES ACTIVE. pt TENDER WITH PALPATATION. IVF INFUSING PER ORDER. pt DENIES ANY OTHER NEEDS AT THIS TIME. CALL LIGHT WITHIN REACH.
[2025-03-16 20:36] VITALS: BP 133/76
--- NOTE | 2025-03-16 22:45 | NUR ---
PATIENT CALLED. IN TO THE ROOM THIS TWISTER DOFFER. PATIENT HAD A LARGE BLOW UP BM ACCIDENT ON THE BED. ASSISTED PATIENT'S IV CORDS AND OTHER PLUG INS UNTANGLED. PATIENT USED THE BATHROOM. BED MATTRESS WIPED WITH PURPLE WIPES. WHOLE BED LINENS CHANGED. PATIENT PROVIDED WITH HOSPITAL GOWN AND PANTS. PATIENT RETURNED TO BED. PATIENT C/O PAIN. PRIMARY RN NOTIFIED AND IN TO THE ROOM WITH PATIENT.
--- NOTE | 2025-03-16 22:55 | NUR ---
IN RM TO ADMINISTER SCHEDULED MEDS. pt C/O 03/09 PAIN. PRN PAIN MEDS ADMINISTERED. SCHEDULED MEDS ADMINISTERED. pt DENIES ANY OTHER NEEDS AT THIS TIME. CALL LIGHT WITHIN REACH.
[2025-03-17] VITALS (14 sets, daily range): BP systolic 116–132; BP diastolic 67–77
--- NOTE | 2025-03-17 | NUR ---
pt CALL FOR ALARMING IV. IV ABX FINISHED INFUSING. pt DENIES ANY NEEDS AT THIS THIS TIME. CALL LIGHT WITHIN REACH.
--- NOTE | 2025-03-17 01:40 | NUR ---
pt CALLED TO USE THE BR. pt C/O 03/09 PAIN. PRN PAIN MEDS ADMINISTERED. pt DENIES ANY OTHER NEEDS AT THIS TIME. CALL LIGHT WITHIN REACH.
--- NOTE | 2025-03-17 02:46 | NUR ---
pt RESTING IN THE BED WITH EYES CLOSED. RR EVEN AND UNLABORED. CALL LIGHT WITHIN REACH.
--- NOTE | 2025-03-17 04:16 | NUR ---
pt RESTING IN THE BED. pt C/O 5/10 PAIN. PLAN TO GIVE PRN PAIN MED WHEN DUE IN 1/2 AN HOUR. pt DENIES ANY OTHER NEEDS AT THIS TIME. CALL LIGHT WITHIN REACH.
--- NOTE | 2025-03-17 04:47 | NUR ---
pt C/O 510 PAIN. PRN PAIN MEDS ADMINISTERED. pt DENIES ANY OTHER NEEDS AT THIS TIME. CALL LIGHT WITHIN REACH.
--- NOTE | 2025-03-17 06:56 | NUR ---
PATIENT SHOWERED USING HIBICLENS SOAP. PATIENT IS BACK IN BED.
--- NOTE | 2025-03-17 06:59 | NUR ---
pt C/O 04/08 PAIN. PRN PAIN MEDS ADMINISTERED. pt DENIES ANY OTHER NEEDS AT THIS TIME. CALL LIGHT WITHIN REACH.
--- NOTE | 2025-03-17 07:09 | NUR ---
REPORT RECEIVED FROM LAST GREASER ОЛЬГА LIVINGSTON. PATIENT IS LYING IN BED WITH EYES CLOSED AND RESPIRATIONS ARE EVEN AND UNLABORED. CALL LIGHT AND PERSONAL BELONGINGS ARE WITHIN REACH.
--- NOTE | 2025-03-17 07:44 | NUR ---
PATIENT LAYING IN BED. BOARD WAS CHANGED. CALL LIGHT IN REACH AND NO FURTHER NEEDS AT THIS TIME.
--- NOTE | 2025-03-17 08:35 | NUR ---
0900 MEDICATIONS ADMINISTERED PER THE EMAR. PATIENT IS LYING IN BED ON ROOM AIR. RESPIRATIONS ARE EVEN AND UNLABORED. PATIENT IS ALERT AND ORIENTED TIMES FOUR. PATIENT WITH NO COMPLAINTS OF NAUSEA. PATIENT RATED PAIN 3/10 IN THE RLQ BUT IS NOT REQUESTING ANYTHING FOR PAIN AT THIS TIME. PATIENT LAST BM WAS 03/17/25. PATIENT IS INDEPENDENT IN THE ROOM. CARDIAC WITH NORMAL S1 AND S2 ON AUSCULTATION. RADIAL AND PEDAL PULSES ARE STRONG BILATERALLY. NO EDEMA NOTED. CAPILLARY REFILL IS LESS THAN 3 SECONDS BILATERALLY IN THE UPPER AND LOWER EXTREMITIES. SENSATION INTACT WITH NO COMPLAINTS OF NUMBNESS OR TINGLING. IV FLUSHED WITH 10 ML NORMAL SALINE. IV DRESSING IS CLEAN, DRY, AND INTACT. SCATTERED TATTOOS NOTED. PATIENT IS NPO WITH ACTIVE BOWEL TONES IN ALL FOUR QUADRANTS. PATIENT IS ON ROOM AIR LUNG SOUNDS ARE CLEAR IN THE UPPER LOBES AND DIMINISHED IN THE BASES BILATERALLY. NO COMPLAINTS OF SOB. PATIENT STATED NO FURTHER NEEDS AT THIS TIME. CALL LIGHT AND PERSONAL BELONGINGS ARE WITHIN REACH.
--- NOTE | 2025-03-17 08:50 | NUR ---
Spoke with Joselo and his . Pt close to going to surgery. He denies needs, but would like to see Renaldo, the therapy dog. I texted Mica, Joselo would like to see them.
--- NOTE | 2025-03-17 09:09 | NUR ---
PATIENT LEFT THE FLOOR AT THIS TIME TO GO TO DAY SURGERY. PATIENT SIGNIFICANT OTHER WENT WITH THE PATIENT.
--- NOTE | 2025-03-17 09:11 | NUR ---
REFERRED BY ОЛЬГА WATSON WHO INDICATED PT WISHED VISIT FROM THERAPY ANIMAL PRIOR TO SURGERY. PT AND BOTH EXHIBITING SIGNS OF ANXIETY; TEARY. FRAME AND SCRAP CRUSHER PROVIDED SUPPORTIVE PRESENCE, PRAYER, FACILITATED INTERACTION WITH THERAPY ANIMAL. BOTH PT AND EXHIBITED DECREASED SIGNS OF ANXIETY, EXPRESSED LAUGHTER, GRATITUDE, STRONG CONNECTION SOURCE OF STRENGTH.
[2025-03-17] MEDS ORDERED: DEXAMETHASONE SOD PHOS 4 MG/ML VIAL ONE (09:21)
[2025-03-17] MEDS ORDERED: ACETAMINOPHEN 1,000 MG/100 ML VIAL ONE (09:21)
[2025-03-17] MEDS ORDERED: ROCURONIUM BROMIDE 50 MG/5 ML SYR ONE ×2 (09:21→09:47)
[2025-03-17] MEDS ORDERED: dexmedeTOMIDine HCl 200 MCG/2 ML VIAL ONE (09:21)
[2025-03-17] MEDS ORDERED: LIDOCAINE HCL 2% 5 ML SDV ONE (09:21)
[2025-03-17] MEDS ORDERED: MAGNESIUM SULFATE 1 GM/2 ML VIAL ONE (09:21)
[2025-03-17] MEDS ORDERED: propofoL 200 MG/20 ML VIAL ONE (09:21)
[2025-03-17] MEDS ORDERED: fentaNYL citrate 100 MCG/2 ML VIAL ONE (09:21)
[2025-03-17] MEDS ORDERED: NALOXONE HCL 0.4 MG SYR IV PRN (09:30)
[2025-03-17] MEDS ORDERED: fentaNYL citrate 50 MCG/ML SDV IV PRN (09:30)
[2025-03-17] MEDS ORDERED: ondansetron HCL 4 MG/2 ML VIAL IV PRN (09:30)
[2025-03-17] MEDS ORDERED: KETOROLAC TROMETHAMINE 30 MG/ML VIAL IV PRN (09:30)
[2025-03-17] MEDS ORDERED: IBLOOD GLUCOSE TEST STRIP 1 EA TEST VI PRN (09:30)
--- NOTE | 2025-03-17 10:24 | NUR ---
PATIENT REMAINS OFF THE FLOOR AT THIS TIME IN SURGERY.
[2025-03-17] MEDS ORDERED: SUGAMMADEX SODIUM 200 MG/2 ML ML ONE (10:47)
--- NOTE | 2025-03-17 11:03 | NUR ---
PATIENT REMAINS OFF THE FLOOR AT THIS TIME.
--- NOTE | 2025-03-17 11:06 | NUR ---
UR CLINICAL REVIEW: MCG-PER MCG REVIEW ENCOUNTER INACTIVE. PER INTERACTIVE MEDIA SPECIALIST MEETS OBS FOR ABD PAIN WITH NEED FOR FURTHER EVALUATION. [facility] OBS 03/16/25 @ 1018 ORDER MATCHES REG DISCHARGE PENDING FURTHER NEED FOR SURGICAL PROCEDURES 03/18/25
--- NOTE | 2025-03-17 11:29 | NUR ---
03/17/25 Go9 Roya Flores 1121-PATIENT ARRIVED TO PACU ON 6L MASK NONAROUSABLE RR EVEN. HOB ELEVATED IVF FLUSHED AND INFUSING. SR HR 80'S. 3 LAP SITES TO ABDOMEN INTACT.
[2025-03-17] MEDS ORDERED: HYDROCODONE/ACETA 5/325 TAB PO PRN (11:45)
--- NOTE | 2025-03-17 12:10 | NUR ---
REPORT RECEIVED FROM ОЛЬГА DIAZ FROM PACU. FIRST SET OF POST OP VITAL SIGNS TAKEN AND DOCUMENTED IN THE CHART. PATIENT WITH NO COMPLAINTS OF PAIN. IV SITE FLUSHED WITH 10 ML NORMAL SALINE AND HAS LR INFUSING AT 100 ML/HR. PATIENT IS ON ROOM AIR WITH THE CPOX AT BEDSIDE. LUNG SOUNDS ARE CLEAR IN THE UPPER LOBES AND ARE DIMINISHED IN THE BASES BILATERALLY. BOWEL TONES ARE ACTIVE IN ALL FOUR QUADRANTS. PATIENT IS ON A CLEAR LIQUID DIET. LAP SITES COVERED WITH DERMABOND. PATIENT IS SITTING ON THE BED WITH PATIENT. PATIENT EDUCATED TO CALL WHEN NEEDING TO USE THE RESTROOM. PATIENT AND HIS EXPRESSED UNDERSTANDING. PATIENT STATED NO FURTHER NEEDS AT THIS TIME. CALL LIGHT AND PERSONAL BELONGINGS ARE WITHIN REACH.
--- NOTE | 2025-03-17 12:17 | NUR ---
PATIENT LAYING IN BED. CALL LIGHT IN REACH AND NO FURTHER NEEDS AT THIS TIME.
--- NOTE | 2025-03-17 13:11 | NUR ---
PT RESTING IN BED, RATES PAIN TO ABD 5/10. PAIN MED GIVEN ORDERED. CPOX AND SCDS ON. LAP SITES TO ABD WITH DERMABOND INTACT WITHOUT DRAINAGE. CALL LIGHT WITHIN REACH. NO OTHER REQUESTS AT THIS TIME.
--- NOTE | 2025-03-17 13:32 | NUR ---
PATIENT IS LAYING IN BED. CALL LIGHT IN REACH AND NO FURTHER NEEDS AT THIS TIME.
--- NOTE | 2025-03-17 13:55 | NUR ---
PT STATES PAIN TO ABD HAS DECREASED TO A 2/10. ABD LAP SITES CDI. NO REQUESTS AT THIS TIME. CALL LIGHT WITHIN REACH.
--- NOTE | 2025-03-17 14:52 | NUR ---
PATIENT IS LAYING IN BED. CALL LIGHT IN REACH AND NO FURTHER NEEDS AT THIS TIME.
--- NOTE | 2025-03-17 15:09 | NUR ---
PT RESTING IN BED, STATES PAIN IS TOLERABLE AT THIS TIME AT 4/10 TO ABD. LAP INCISION SITES WITH DERMABOND CDI. NO REQUESTS. CALL LIGHT WITHIN REACH.
[2025-03-17] MEDS ORDERED: SEVOFLURANE 250 ML BTL INH ONE (15:16)
--- NOTE | 2025-03-17 16:47 | NUR ---
PATIENT IS LAYING IN BED. GOWN WAS CHANGED. JELLO WAS GIVEN. PATIENT WAS GIVEN A COLD WASH CLOTH. SCDS WERE PLACED BACK ON AFTER PUTTING ON PJS. PATIENT WAS IN PAIN AND RN WAS NOTIFIED. CALL LIGHT IN REACH AND NO FURTHER NEEDS AT THIS TIME.
--- NOTE | 2025-03-17 16:56 | NUR ---
BAUDILIO HOOVER NOTIFIED THIS RN OF PATIENT SWEATING AND REQUESTING MORE PAIN MEDICATION. THIS RN ASSESSED PATIENT. ORAL TEMPERATURE WAS 97.6. PATIENT RATED PAIN 6/10 AFTER PUTTING ON CLOTHES AND USING THE RESTROOM. PATIENT EDUCATED ON PLAN TO GET DILAUDID AND TYLENOL. PATIENT EXPRESSED UNDERSTANDING. PATIENT STATED NO FURTHER NEEDS AT THIS TIME. CALL LIGHT AND PERSONAL BELONGINGS ARE WITHIN REACH.
--- NOTE | 2025-03-17 17:49 | NUR ---
PATIENT IS RESTING IN BED. CALL LIGHT IN REACH.
--- NOTE | 2025-03-17 18:17 | NUR ---
PATIENT IS LYING IN BED WITH EYES CLOSED AND RESPIRATIONS ARE EVEN AND UNLABORED. PATIENT IS SNORING. PATIENT IS ON ROOM AIR WITH THE CPOX AT BEDSIDE. TV IS ON. CALL LIGHT AND PERSONAL BELONGINGS ARE WITHIN REACH.
--- NOTE | 2025-03-17 19:10 | NUR ---
REPORT RECEIVED FROM SWETA ROLON. pt RESTING IN THE BED. SNACK PROVIDED TO pt. BOARD UPDATED. pt DENIES ANY OTHER NEEDS AT THIS TIME. CALL LIGHT WITHIN REACH.
--- NOTE | 2025-03-17 20:10 | NUR ---
ASSESSMENT AND VITAL SIGNS DONE. pt C/O 01/07 PAIN. PRN AND SCHEDULED MEDS ADMINSITERED. IV ASSESSED, WNL. BOWEL TONE ACTIVE. LAP SITES CDI. SNACK PROVIDED. pt DENIES ANY OTHER NEEDS AT THIS TIME. CALL LIGHT WITHIN REACH.
--- NOTE | 2025-03-17 22:16 | NUR ---
pt CALLED AND C/O 02/06 PAIN. PRN PAIN MEDS ADMINISTERED. pt DENIES ANY OTHER NEEDS AT THIS TIME. CALL LIGHT WITHIN REACH.
--- NOTE | 2025-03-17 23:08 | NUR ---
PATIENT CALLED TO REQUEST PAIN MEDICATION, THIS RN INTO ASSESS PATIENT, HE REPORTS 6/10 PAIN AT ABD., HE REPORTS HE WAS JUST UP TO VOID AT BEDSIDE AND "PAIN SHOT UP" PATIENT IS MOANING AND GRIMACING, PATIENT ADMINISTERED DILAUDID PRN.
[2025-03-18 01:05] VITALS: BP 107/68
--- NOTE | 2025-03-18 01:33 | NUR ---
pt CALLED FOR ALARMING IV. NEW BAG OF IVF INFUSING PER ORDER. pt DENIES ANY OTHER NEEDS AT THIS TIME. CALL LIGHT WITHIN REACH.
--- NOTE | 2025-03-18 02:57 | NUR ---
pt RESTING IN THE BED WITH EYES CLOSED. RR EVEN AND UNLABORED. CALL LIGHT WITHIN REACH. CALL LIGHT WITHIN REACH.
[2025-03-18 05:02] VITALS: BP 154/86
[2025-03-18 05:03] VITALS: BP 154/86
--- NOTE | 2025-03-18 05:10 | NUR ---
pt CALLED AND C/O 04/08 PAIN. WHEN THIS RN BROUGHT IN THE PRN NORCO pt STATED THAT IT WOULDN'T WORK FOR HIM HE NEEDS THE OTHER STUFF. IF HE COULD JUST EAT OR GO HOME SO HE DOESN'T HURT IT WOULD BE BETTER. THIS RN THEN EDUCATED THE pt ABOUT PRN IV MEDS AND HOW THEY MAY PREVENT HIM FROM GOING HOME BECAUSE HE DOES NOT HAVE THEM THEIR. HE SAYS HE KNOW HES NOT TRYING TO BE A BOTHER BUT THE PILLS JUST ARE NOT WORKING FOR HIM. THE pt STATES HE NOT TRYING TO BE RUDE BUT THAT YOU NURSES ARE TAKING SUCH GOOD CARE OF HIM BUT HE'S IN A LOT OF PAIN. PRN PAIN MEDS ADMINISTERED. SNACK PROVIDED. pt DENIES ANY OTHER NEEDS AT THIS TIME. CALL LIGHT WITHIN REACH.
--- NOTE | 2025-03-18 07:29 | NUR ---
RECIEVED SHIFT REPORT. PT IS ASLEEP, AROUSABLE. CALL LIGHT IN REACH.
--- NOTE | 2025-03-18 08:04 | NUR ---
MORNING ASSESSMENT COMPLETE. PT COMPLAINING OF 4/10. PAIN MEDICATION GIVEN PER EMAR. DISCUSSED THE MEDICATIONS WITH PATIENT HE IS ANXIOUS ABOUT THE MEDICATIONS HES BEEN RECIEVING. PT IS AWAKE IN BED, ASKING TO TALK TO DOCTOR DUE TO WANTING FOOD FOR BREAKFAST, BESIDES A FULL LIQUID. CALL LIGHT IN REACH.
--- NOTE | 2025-03-18 09:00 | NUR ---
INTO SEE PATIENT. PATIENT WANTING TO BE DISCHARGED. STATES "I HAVE MY GO GET MY CLOTHES I AM READY TO LEAVE." PATIENT GOING HOME WITH WHEN MEDICALLY CLEARED FOR DISCHARGE. NO CM NEEDS.
[2025-03-18 10:07] VITALS: BP 142/72
[2025-03-18 10:41] VITALS: BP 142/72
[2025-03-18] MEDS ORDERED: diphenhydrAMINE HCL 50 MG CAP PO ONE (11:00)
[2025-03-18 11:04] VITALS: BP 110/62
[2025-03-18] MEDS ORDERED: TYLENOL EXTRA500 MG PO (11:18)
[2025-03-18] MEDS ORDERED: IBU400 MG PO (11:19)
--- NOTE | 2025-03-19 08:59 | NUR ---
PT ARRIVED TO THE UNIT TODAY TO APOLOGIZE FOR PATIENT LEAVING THE WAY HE DID. SHE WAS REQUESTING HIS DISCHARGE PAPERS AND HIS PRESCRIPTIONS FOR PAIN. WAS PROVIDED HIS DISCHARGE PAPERWORK WITH FOLLOW-UP APPOINTMENT. SHE INQUIRED ON WHAT TO DO IF PAIN IS NOT CONTROLLED, INFORMED TO CALL PCP OR RETURN TO ED FOR EVALUATION. PT WAS DISCHARGED WITH TYLENOL/IBUPROFEN FOR PAIN DUE TO SEVERE ITCHING PRIOR TO DISCHARGING YESTERDAY.
== END 2025-03-18 11:20 | disposition home or self-care (01) ==
LOC: ED 06:48 → MS 06:50
PROVIDERS: Emergency Medicine; ADMIT Surgery; ATTEND Surgery
PROC: 0DTJ4ZZ Resection of Appendix, Percutaneous Endoscopic Approach (ICD-10-PCS; principal; 2025-03-17 09:00)
DX: K37 Unspecified appendicitis (principal); Z88.0 Allergy status to penicillin; Z79.899 Other long term (current) drug therapy
CPT/HCPCS: 00840; 36415; 74177; 74250; 80053; 81003; 83690; 83735; 85025; 88304; 94762; 96361; 96372; 96375; 96376; 99285-25; A9270; G0378; J0131; J0744; J1100; J1171; J1644; J1885; J2003; J2405; J2704; J3010; J3475; J3490; J7030; J7121; Q0163; Q9967

== ENCOUNTER 2025-06-06 21:16 | Emergency (ER) | payer OTHER ==
[~2025-06-06] VITALS: Ht 182.9 cm; Wt 114.0 kg
[~2025-06-06 21:16] MED LIST changes: +CHLORHEXIDINE473 ML MM; +DENTA 5000 PLUS51 GM MM; +IBU400 MG PO; +SILDENAFIL20 MG PO; +TYLENOL EXTRA500 MG PO
--- OUTSIDE RECORDS SUMMARY | 2025-06-06 21:23 | XMS ---
PreManage Notification: MEGAN IFSCHER Security Marketing Communications Coordinator Events No recent Security Events currently on file CRITERIA MET - Group Notification CARE PROVIDERS There are no care providers on record at this time. Emile has no Care Guidelines for this patient. Sho VISIT COUNT (12 MO.) 2 ЕЛЕНА Dawson 2 [facility] TOTAL 4 NOTE: Visits indicate total known visits. [place] (12 MO.) 06/06/2025 21:17 [place] TYPE: Emergency COMPLAINT: - DENTAL PAIN 11/30/2024 07:23 [facility] [place] TYPE: Emergency COMPLAINT: - ABDOMINAL [facility]24 09[facility] COMPLAINT: - KIARA HUNT PX 07/03/2024 08:36 [facility] TYPE: Emergency COMPLAINT: - ABD PX INPATIENT VISIT TRACKING (12 MO.) 03/16/2025 06:50 [facility] [place] TYPE: Observation COMPLAINT: - ABDOMINAL PAIN DIAGNOSES: - Allergy status to penicillin - Other superintendent terminal (current) drug therapy - Right lower quadrant pain - Unspecified appendicitis 12/01/2024 14:13 ЕЛЕНА [place] TYPE: Medical Surgical [...] to partial versus complete obstruction 07/06/2024 15:51 [facility] TYPE: Inpatient COMPLAINT: - PARTIAL SBO, ABDOMINAL [...] 2 - Obesity, class 2 07/03/2024 10:46 [facility] TYPE: Inpatient COMPLAINT: - ABD PX DIAGNOSES: [...] Obesity, class 2 - Obesity, class 2 [email or web address]
[2025-06-06] MEDS ORDERED: HYDROCODONE BIT/ACETAMINOPHEN 5/325 MG 1 TAB HOME.PACK PO ONE (21:45)
[2025-06-06] MEDS ORDERED: HYDROCODON-ACE1 EA10 PO (21:49)
[2025-06-06] MEDS ORDERED: CLEOCIN HCL300 MG PO ×2 (21:49)
[2025-06-06 21:56] VITALS: BP 167/98
[2025-06-07] MEDS ORDERED: CLEOCIN HCL300 MG PO (16:55)
== END 2025-06-06 21:59 | disposition home or self-care (01) ==
LOC: ED 21:16
DX: K04.7 Periapical abscess without sinus (principal); F43.10 Post-traumatic stress disorder, unspecified; Z79.899 Other long term (current) drug therapy
CPT/HCPCS: 99282; A9270

== ENCOUNTER 2025-06-10 02:47 | Emergency (ER) | payer OTHER ==
[~2025-06-10] VITALS: Ht 182.9 cm; Wt 107.0 kg
[~2025-06-10 02:47] MED LIST changes: +CLEOCIN HCL300 MG PO
--- OUTSIDE RECORDS SUMMARY | 2025-06-10 02:50 | XMS ---
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 Emile has no Care Guidelines for this patient. Sho VISIT COUNT (12 MO.) [address] TOTAL 5 NOTE: Visits indicate total known visits. ED/C VISIT TRACKING (12 MO.) 06/10/2025 02:48 [facility] [place] TYPE: Emergency COMPLAINT: - CHEST PAIN 06/06/2025 21:17 ЕЛЕНА [place] TYPE: Emergency COMPLAINT: - DENTAL PAIN DIAGNOSES: - Other [facility] (current) drug therapy - Other specified disorders of teeth and supporting structures - Periapical abscess without sinus - Post-traumatic stress disorder, unspecified 11/30/2024 07:23 ЕЛЕНА [place] TYPE: Emergency COMPLAINT: - ABDOMINAL PAIN [facility]24 09[facility] [place] [facility] COMPLAINT: - KIARA HUNT PX [facility]24 08[facility] [place] [facility] COMPLAINT: - KIARA PX INPATIENT VISIT TRACKING (12 MO.) 03/16/2025 06:50 [facility] [place] TYPE: Observation COMPLAINT: - ABDOMINAL PAIN DIAGNOSES: - Allergy status to penicillin - Other [facility] (current) drug therapy - Right lower quadrant pain - Unspecified appendicitis 12/01/2024 14:13 [facility] [place] TYPE: Medical Surgical COMPLAINT: - SBO DIAGNOSES: [...] to partial versus complete obstruction 07/06/2024 15:51 [facility] TYPE: Inpatient COMPLAINT: - PARTIAL SBO, ABDOMINAL [...] 2 - Obesity, class 2 07/03/2024 10:46 [facility] TYPE: Inpatient COMPLAINT: - ABD PX DIAGNOSES: [...] Obesity, class 2 - Obesity, class 2 [email or web address]
[2025-06-10] MEDS ORDERED: CLINDAMYCIN HC300 MG PO (02:56)
[2025-06-10] MEDS ORDERED: DOXYCYCLINE MO100 MG PO (02:57)
[2025-06-10] MEDS ORDERED: NITROGLYCERIN 0.4 MG SUBL SL PRN (03:00)
[2025-06-10] MEDS ORDERED: GLUCAGON,HUMAN RECOMBINANT 1 MG/ML VIAL IV ONE (03:00)
[2025-06-10] MEDS ORDERED: FAMOTIDINE 20 MG/ 2 ML VIAL IV ONE (03:00)
[2025-06-10] MEDS ORDERED: ASPIRIN 81 MG CHEW PO ONE (03:00)
[2025-06-10 03:19] LABS: BASOPHILS 0.5 % (0.2-1.2); EOSINOPHILS 1.2 % (0.8-7.0); LYMPHOCYTES 28.2 % (21.8-53.1); MCH 29.6 PG (25.7-32.2); MCHC 34.1 g/dL (32.3-36.5); MCV 87.1 fL (79.0-92.2); MONOCYTES 8.9 % (5.3-12.2); NEUTROPHILS 60.7 % (34.0-67.9); RBC 5.33 M/uL (4.63-6.08)
[2025-06-10 03:21] LABS: ALT (SGPT) 63.0 U/L (14-59); AST (SGOT) 33.0 U/L (15-37); GLOMERULAR FILTRATION RATE,EST 80.0 mL/min (>60); PROTEIN, TOTAL 7.7 g/dL (6.4-8.2); UREA NITROGEN 21.0 mg/dL (7-18)
[2025-06-10] MEDS ORDERED: LIDOCAINE & ANTACID 35 ML BTL PO ONE (03:30)
[2025-06-10] MEDS ORDERED: SODIUM CHLORIDE 0.9% 1,000 ML IV PRN (03:45)
[2025-06-10] MEDS ORDERED: OMEPRAZOLE20 MG PO (05:21)
[2025-06-10 05:44] VITALS: BP 128/87
--- NOTE | 2025-06-11 19:49 | EKG ---
[facility] [address] [place], [place] [address] Signed Normal sinus rhythm with sinus arrhythmia Nonspecific T wave abnormality Abnormal ECG No previous ECGs available Confirmed by Sheba Monsalve DO ([id number]) on 06/11/2025 7:48:51 PM Electronically Signed By: SHEBA MONSALVE DO 06/11/251948 PATIENT NAME: MEGAN FISCHER Electrocardiogram DATE OF : 84 PHYSICIAN: SHEBA MONSALVE DO REPORT #: [id number] REPORT IS CONFIDENTIAL AND NOT TO BE RELEASED WITHOUT AUTHORIZATION
== END 2025-06-10 05:49 | disposition home or self-care (01) ==
LOC: ED 02:47
PROVIDERS: Internal Medicine
DX: K20.80 Other esophagitis without bleeding (principal); T36.8X5A Adverse effect of other systemic antibiotics, initial encounter; K02.9 Dental caries, unspecified; Z88.0 Allergy status to penicillin; Z79.2 Long term (current) use of antibiotics
CPT/HCPCS: 36415; 64400; 71045; 80053; 84484; 85025; 93005; 93010; 96374; 96375; 99285-25; A9270; J1610; J7030

== ENCOUNTER 2025-06-19 22:15 | Emergency (ER) | payer OTHER ==
[~2025-06-19] VITALS: Ht 182.9 cm; Wt 118.7 kg
[~2025-06-19 22:15] MED LIST changes: +CLINDAMYCIN HC300 MG PO; +DOXYCYCLINE MO100 MG PO; +OMEPRAZOLE20 MG PO
--- OUTSIDE RECORDS SUMMARY | 2025-06-19 22:22 | XMS ---
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 Emile has no Care Guidelines for this patient. Sho VISIT COUNT (12 MO.) [address] TOTAL 6 NOTE: Visits indicate total known visits. ED/C VISIT TRACKING (12 MO.) 06/19/2025 22:15 [facility]: [place] COMPLAINT: - TOOTH PAIN 06/10/2025 02:48 [facility] [place] TYPE: Emergency COMPLAINT: - CHEST PAIN DIAGNOSES: - Adverse effect of other systemic antibiotics, initial encounter - Allergy status to penicillin - Chest pain, unspecified - Dental caries, unspecified - superintendent terminal (current) use of antibiotics - Other esophagitis without bleeding 06/06/2025 21:17 [facility] TYPE: Emergency COMPLAINT: - DENTAL PAIN DIAGNOSES: - Other long term care pharmacist (current) drug therapy - Other specified disorders of teeth and supporting structures - Periapical abscess without sinus - Post-traumatic stress disorder, unspecified 11/30/2024 07:23 [facility] [place] TYPE: Emergency COMPLAINT: - ABDOMINAL PAIN 07/06/2024 09:46 [facility] TYPE: Emergency COMPLAINT: - SOA,ABD PX 07/03/2024 08:36 [facility] TYPE: Emergency COMPLAINT: - ABD PX INPATIENT VISIT TRACKING (12 MO.) 03/16/2025 06:50 [facility]ЛЕНА [place] TYPE: Observation COMPLAINT: - ABDOMINAL PAIN DIAGNOSES: - Allergy status to penicillin - Other long term care pharmacist (current) drug therapy - Right lower quadrant [...] to partial versus complete obstruction 07/06/2024 15:51 [facility] TYPE: Inpatient COMPLAINT: - PARTIAL SBO, ABDOMINAL [...] 2 - Obesity, class 2 07/03/2024 10:46 [facility] TYPE: Inpatient COMPLAINT: - ABD PX DIAGNOSES: [...] Obesity, class 2 - Obesity, class 2 [email or web address]
[2025-06-19] MEDS ORDERED: BUPIVACAINE 0.25% W/ EPI 30 ML SDV DENTAL PRN (23:00)
[2025-06-19] MEDS ORDERED: AMOXICILLIN/CLAVULANATE K 875 MG TAB PO ONE (23:45)
[2025-06-19] MEDS ORDERED: IBUPROFEN 800 MG TAB PO ONE (23:45)
[2025-06-20] MEDS ORDERED: HYDROCODONE/ACETA 7.5/325 TAB PO ONE (00:45)
[2025-06-20] MEDS ORDERED: FAMOTIDINE 20 MG/ 2 ML VIAL IV ONE (00:45)
[2025-06-20] MEDS ORDERED: AMOX TR-K CLV1 EAC1 PO (00:55)
[2025-06-20] MEDS ORDERED: HYDROCODONE BIT/ACETAMINOPHEN 5/325 MG 1 TAB HOME.PACK PO ONE (01:00)
[2025-06-20] MEDS ORDERED: AMOXICILLIN/CLAVULANATE K 875 MG HOME.PACK PO ONE (01:00)
[2025-06-20 01:06] VITALS: BP 148/78
== END 2025-06-20 01:07 | disposition home or self-care (01) ==
LOC: ED 22:15
DX: K02.9 Dental caries, unspecified (principal); R21 Rash and other nonspecific skin eruption; Z88.0 Allergy status to penicillin
CPT/HCPCS: 64400; 99282-25; A9270